=== PATIENT | female | born 1980 | race Caucasian/White ===

== ENCOUNTER 2016-12-31 11:34 | Emergency (ER) | payer MEDICAID ==
[2016-12-31 12:15] LABS: Hematocrit 40.2 % (37.0-47.0); Hemoglobin 13.7 gm/dL (12.5-16.0); Mean Cell Volume 86.1 fl (78-100); Mean Corpuscular Hemoglobin 29.3 pg (27-31); Mean Corpuscular Hgb Conc 34.1 g/dl (32-36); Mean Platelet Volume 8.2 fl (6.0-9.5); Neutrophil # 4.5 K/mm3 (1.3-6.0); Neutrophil % 65.3 % (42-75.0); Platelet Count 266 K/mm3 (150-450); Red Blood Count 4.67 M/mm3 (4.2-5.4); Red Cell Distribution Width 12.4 % (11.5-14.0); White Blood Count 6.9 K/mm3 (4.0-10.5)
--- NOTE | 2016-12-31 12:27 | ERNOTE ---
Medical Problem HPI - Narrative Date of Service: 12/31/16 - General Chief Complaint: General Assessment Time Seen by Provider: 12/31/16 11:58 Source: patient Exam Limitations: no limitations - Immun/Allergies/Home Medications Immunizations: IMMUNIZATION HX Immunizations Up to Date Yes Allergies/Adverse Reactions: Allergies No Known Allergies Allergy (Verified 12/31/16 11:53) Home Medications: HOME MEDICATIONS Prenatabs Rx Tablet 12/31/16 [Last Taken Unknown] - History of Present History Narrative: Pt. comes in with c/o spotting blood on her toilet paper when she wiped once last night and once today. Pt. states that she is with her LMP 11/01/15 and she is 8 wk 5 days by dates. Pt. denies any pain, Dysuria, recent illness, fever, SOB, CP, NVD, alleviating factors, aggravating factors, or prehospital treatment. Review of Systems - Review of Systems Constitutional: Present: no symptoms reported. Absent: recent illness, fever, chills, weakness, fatigue EYE: Present: no symptoms reported ENT: Present: no symptoms reported Respiratory: Present: no symptoms reported. Absent: shortness of breath, cough , wheezing Cardiology: Present: no symptoms reported. Absent: chest pain, palpitations, edema Gastrointestinal/Abdominal: Present: no symptoms reported. Absent: nausea, vomiting, diarrhea, abdominal pain Genitourinary: Present: discharge - blood Musculoskeletal: Present: no symptoms reported. Absent: back pain, joint pain Skin: Present: no symptoms reported. Absent: rash, change in color All Other Systems: All systems neg except as marked - Patient's Past Medical History Patient History - Medical: No pertinent hx Patient History - Cardiac/Respiratory: No pertinent hx Patient History - Cancer: No Hx of Cancer Patient History - Other: None - Social History Living Situations: spouse Abuse History: No History of abuse Psych History: No pertinent hx Smoking Status: Never smoker Alcohol Use: none Drug Use: none - Immunizations Immunizations Up to Date: Yes Physical Exam - Physical Exam General Appearance: Present: wd/wn, alert, no apparent distress Eye Exam: Normal inspection: bilateral, PERRL: bilateral, EOMI: bilateral Ears, Nose, Throat: Present: normal ENT inspection, normal pharynx Neck: Present: normal inspection, nontender. Absent: lymphadenopathy (R), lymphadenopathy (L) Respiratory: Present: no respiratory distress, normal breath sounds, no accessory muscle use, chest nontender, lungs clear Cardiovascular/Chest: Present: regular rate, rhythm, no murmur, normal peripheral pulses Gastrointestinal/Abdominal: Present: normal bowel sounds, nontender, nondistended, soft, no organomegaly Back Exam: Present: normal inspection Extremity Exam: Present: normal inspection Neurological Exam: Present: alert, oriented, normal mood/affect, no motor/ sensory deficits Skin Exam: Present: normal color, warm/dry. Absent: pallor, skin rash Pelvic Exam: Absent: active bleeding ED Progress - Date and Time Seen: Date and Time: 12/31/16 15:00 Discussed the probability of demise with Dr Salinas and she recommends having pt. call first thing in the am and discuss with Dr Hall on her options for her miscarriage. - Results and Orders Patient's Lab Results:: I have reviewed the patient's lab results. - Vital Signs Patient's Vital Signs:: I have reviewed the patient's vital signs. Vital Signs: Vital Signs 12/31/16 11:44 Temperature 37.1 C Pulse Rate 92 Respiratory 16 Rate Blood Pressure 153/91 O2 Sat by Pulse 100 Oximetry - CT/Ultrasound CT/Ultrasound Narrative: US with pole GS sac and yolk sac seen no FHT - Progress/Reassessment Chief Complaint: General Assessment Departure - Departure Clinical Impression: demise Disposition: Home self-care Condition: Good Instructions: Miscarriage, [id number] Additional Instructions: Please call Dr Hall's office tomorrow morning to discuss options.
[2016-12-31 12:49] LABS: Urine Color Yellow
[2016-12-31 12:50] LABS: Urine Appearance Clear; Urine Bacteria None Seen; Urine Bilirubin Negative (NEGATIVE); Urine Blood 25 /ul (NEGATIVE); Urine Ketone Negative (NEGATIVE); Urine Nitrite Negative (NEGATIVE); Urine Protein Negative (NEGATIVE); Urine RBC 0-5 /hpf (0-5); Urine Urobilinogen Normal (NORMAL); Urine WBC None Seen /hpf (0-5); Urine pH 6.5 pH (5.0-7.0)
[2016-12-31 14:20] VITALS: BP 146/86
== END 2016-12-31 15:11 | disposition home or self-care (01) ==
LOC: ER 11:34
DX: O03.4 Incomplete spontaneous abortion without complication (principal)

== ENCOUNTER 2019-01-02 00:09 | Inpatient (IN) ==
[2019-01-02] MEDS ORDERED: MISOPROSTOL 100 MCG TABLET VG PRN (00:13)
[2019-01-02] MEDS ORDERED: OXYTOCIN/DEXTROSE 5%-WATER 30 UNITS/500 ML BAG IV ONE ×2 (00:13→16:57)
[2019-01-02 00:46] LABS: Cocaine Ur Negative (NEGATIVE); Urine Barbiturate Negative (NEGATIVE); Urine Benzodiazepines Negative (NEGATIVE); Urine Opiates Negative (NEGATIVE); Urine PCP Negative (NEGATIVE); Urine THC Negative (NEGATIVE)
[2019-01-02] MEDS: DEXTROSE 5%-LACTATED RINGERS 1,000 ML IV PRN ×3 (00:51→10:20)
[2019-01-02] MEDS: RINGER'S SOLUTION,LACTATED 1,000 ML IV ONE ×2 (06:32→09:20)
--- NOTE | 2019-01-02 07:58 | HP ---
Chief Complaint - Chief Complaint Date of Service: 01/02/19 Time of Service: 07:45 Chief Complaint: medical induction of labor History of Present Illness: 38 yo at 37 weeks presents to L&D for induction of labor for GHTN. This complicated by anemia, AMA, GHTN, morbid obesity, h/o migraines. Rh positive Rubella nonimmune GBS negative Medical History (Updated 12/27/18 @ 09:19 by Theresa Prince MD) BMI 33.0-33.9,adult (Chronic) Advanced maternal age affecting , antepartum (Acute) Advanced maternal age (AMA) in Onset Date: 06/11/18 Anemia Onset Date: 10/22/18 w/. Body piercing Onset Date: Unknown Obesity Onset Date: Unknown Psoriasis of scalp Onset Date: Unknown Tattoos Onset Date: Unknown , spontaneous Onset Date: ~2016 x2 in 2017 HPV (human papilloma virus) infection Onset Date: Unknown Migraine Onset Date: Unknown with aura Surgical History: Surgical History (Updated 11/13/18 @ 16:38 by Ayush Hall DO) [place] teeth extracted Onset Date: ~1997 High school Family History: Family History (Updated 06/11/18 @ 13:43 by Juice Sweet RN) Mother Alive and well Father Medical history unknown Grandfather CVA (cerebral vascular accident) Grandmother CVA (cerebral vascular accident) Grandmother Lung cancer Social History: Preferred Language Montenegrin Smoking Status Never smoker Abuse History No History of abuse Psych History No pertinent hx (Last Updated 12/30/18 @ 10:19 by Ayush Hall DO) No Social History Section defined Review Of Systems (GEN) - Review of Systems Generalized/Overall Review: Present: No Symptoms Reported EENTM: Present: No Symptoms Reported Respiratory: Present: No Symptoms Reported Cardiac: Present: No Symptoms Reported Abdominal: Present: No Symptoms Reported Genitourinary: Present: No Symptoms Reported Musculoskeletal: Present: No Symptoms Reported Neurological: Present: No Symptoms Reported Skin: Present: No Symptoms Reported Endocrine: Present: No Symptoms Reported Immunizations: IMMUNIZATION HX Immunizations Up to Date Yes History of Influenza Vaccine No Hx Pneumococcal Vaccination No Allergies/Adverse Reactions: Allergies Allergy/AdvReac Type Severity Reaction Status Date / Time No Known Allergies Allergy Verified 01/02/19 00:17 Home Medications: HOME MEDICATIONS [id number]/Iron Fumarate/FA/Dss [ 19 Tablet] 1 ea PO DAILY 06/18/17 [Last Taken 01/01/19 09:00] ferrous sulfate 325 mg (65 mg iron) tablet 325 mg PO DAILY #30 tab 10/22/18 [Last Taken 01/01/19 09:00] ascorbic acid (vitamin C) 500 mg tablet 500 mg PO DAILY 11/19/18 [Last Taken 01/01/19 09:00] Exam - Exam Vital Signs: Vital Signs - Last Taken Temp 36.4 C 01/02/19 01:16 Pulse 82 01/02/19 01:16 Resp 16 01/02/19 01:16 BP 128/63 01/02/19 01:16 Pulse Ox 97 01/02/19 01:16 Constitutional: Present: Alert, Oriented x3, Cooperative ENT Exam: Present: hearing grossly normal Breasts: Present: Exam deferred Respiratory: Present: lungs clear, no respiratory distress Cardiovascular/Chest: Present: normal peripheral pulses, regular rate, rhythm Abdomen: Present: soft, nontender, no rebound tenderness, other - Gravid /Rectal: Present: Other - cervix - 1-2/th/-3 Extremity: Present: non-tender, no pedal edema, no calf tenderness Skin Exam: Present: normal color, warm/dry, no cyanosis Neurologic: Present: alert, normal mood/affect, oriented x 3 Appearance: Present: appropriate appearance, appropriate insight Eye contact: Present: cooperative, good eye contact Thoughts: Present: normal thought pattern Diagnostic Studies: Laboratory Results Negative (NEGATIVE) 01/02/19 00:19 Negative (NEGATIVE) 01/02/19 00:19 Ur Phencyclidine Scrn Negative (NEGATIVE) 01/02/19 00:19 Urine Amphetamine Negative (NEGATIVE) 01/02/19 00:19 U Benzodiazepines Scrn Negative (NEGATIVE) 01/02/19 00:19 Negative (NEGATIVE) 01/02/19 00:19 Negative (NEGATIVE) 01/02/19 00:19 Assessment/Plan - Assessment/Plan (1) Gestational hypertension Assessment: Admit for Cytotec induction of labor. Epidural PRN. Problem: Acute Qualifiers: Trimester: third trimester (2) BMI 33.0-33.9,adult Problem: Chronic (3) Advanced maternal age affecting , antepartum Problem: Chronic
--- NOTE | 2019-01-02 08:05 | PN ---
Progess Note - Interim Date: 01/02/19 Time: 07:58 Narrative: 01/02/19 07:58 Patient rating contractions as mild Vital signs stable. Status post one dose of Cytotec at 0205 FHT:150 baseline, minimal variability with occasional mild variable deceleration. Minimum variability has been present since admission with occasional 10 x10 accelerations. Good accelerations for about 30 min around 0430. Contractions q 2-3 min Cervix: 2/25/-2, AROM at 0659 clear. IUPC and FSE placed. Impression: Intrauterine at 37 weeks induction of labor for gestational hypertension. Category 2 tracing. Plan: Continue with position changes and fluid hydration. Patient and family have been counseled on high risk for needing section. Risks, benefits, and alternatives discussed with patient and family. OR crew aware and on standby if needed.
--- NOTE | 2019-01-02 09:17 | ANES ---
Anesthesia Pre Procedure Eval Vitals/Labs: Last Vital Signs Temp 36.4 C 01/02/19 01:16 Pulse 82 01/02/19 01:16 Resp 16 01/02/19 01:16 BP 128/63 01/02/19 01:16 Pulse Ox 97 01/02/19 01:16 HOME MEDICATIONS [id number]/Iron Fumarate/FA/Dss [ 19 Tablet] 1 ea PO DAILY 06/18/17 [Last Taken 01/01/19 09:00] ferrous sulfate 325 mg (65 mg iron) tablet 325 mg PO DAILY #30 tab 10/22/18 [Last Taken 01/01/19 09:00] ascorbic acid (vitamin C) 500 mg tablet 500 mg PO DAILY 11/19/18 [Last Taken 01/01/19 09:00] Allergies/Adverse Reactions: Allergies Allergy/AdvReac Type Severity Reaction Status Date / Time No Known Allergies Allergy Verified 01/02/19 00:17 - Planned Procedure Planned Procedure: INDUCTION FOR GESTATIONAL DIABETES Medication List Reviewed:: Yes Allergies Verified: Yes Medical History (Updated 01/02/19 @ 07:58 by Ayush Hall DO) BMI 33.0-33.9,adult (Chronic) Advanced maternal age affecting , antepartum (Chronic) Advanced maternal age (AMA) in Onset Date: 06/11/18 Anemia Onset Date: 10/22/18 w/. Body piercing Onset Date: Unknown Obesity Onset Date: Unknown Psoriasis of scalp Onset Date: Unknown Tattoos Onset Date: Unknown , spontaneous Onset Date: ~2016 x2 in 2017 HPV (human papilloma virus) infection Onset Date: Unknown Migraine Onset Date: Unknown with aura Surgical History (Updated 11/13/18 @ 16:38 by Ayush Hall DO) [place] teeth extracted Onset Date: ~1997 High school Family History (Updated 06/11/18 @ 13:43 by Juice Sweet RN) Mother Alive and well Father Medical history unknown Grandfather CVA (cerebral vascular accident) Grandmother CVA (cerebral vascular accident) Grandmother Lung cancer - Family Anesthesia History Family History:: no untoward family reactions to anesthesia - Airway/Neck/Teeth Within Normal Limits:: Yes Teeth Condition: intact Neck Exam: full range of motion Mallampatti Score: 2 Thyromental (T-M) distance: > 6 cm Mandibulo Hyoid distance: > 3 cm - Respiratory Smoking Status: Never smoker Sleep Apnea currently treated: No Sleep Apnea by current assessment: No - Cardiovascular Tolerate Activity: Good Heart Sounds: S1 & S2, Regular - Anesthesia Assessment and Plan ASA Class: PS, II, E Anesthesia Type Plan: Spinal - TAP block for postop analgesia
[2019-01-02] MEDS ORDERED: BUPIVACAINE HCL/0.9 % NACL/PF 250 ML EP PRN (10:12)
[2019-01-02] MEDS ORDERED: NALOXONE HCL 1 MG/1 ML SYRG IV PRN (10:12)
[2019-01-02] MEDS ORDERED: ONDANSETRON HCL/PF 2 MG/ML VIAL IV PRN (10:12)
--- NOTE | 2019-01-02 10:14 | ANES ---
Anesthesia Pre Procedure Eval Vitals/Labs: Last Vital Signs Temp 36.4 C 01/02/19 01:16 Pulse 82 01/02/19 01:16 Resp 16 01/02/19 01:16 BP 128/63 01/02/19 01:16 Pulse Ox 97 01/02/19 01:16 HOME MEDICATIONS [id number]/Iron Fumarate/FA/Dss [ 19 Tablet] 1 ea PO DAILY 06/18/17 [Last Taken 01/01/19 09:00] ferrous sulfate 325 mg (65 mg iron) tablet 325 mg PO DAILY #30 tab 10/22/18 [Last Taken 01/01/19 09:00] ascorbic acid (vitamin C) 500 mg tablet 500 mg PO DAILY 11/19/18 [Last Taken 01/01/19 09:00] Allergies/Adverse Reactions: Allergies Allergy/AdvReac Type Severity Reaction Status Date / Time No Known Allergies Allergy Verified 01/02/19 00:17 - Planned Procedure Planned Procedure: INDUCTION FOR GESTATIONAL DIABETES Medication List Reviewed:: Yes Allergies Verified: Yes Medical History (Updated 01/02/19 @ 07:58 by Ayush Hall DO) BMI 33.0-33.9,adult (Chronic) Advanced maternal age affecting , antepartum (Chronic) Advanced maternal age (AMA) in Onset Date: 06/11/18 Anemia Onset Date: 10/22/18 w/. Body piercing Onset Date: Unknown Obesity Onset Date: Unknown Psoriasis of scalp Onset Date: Unknown Tattoos Onset Date: Unknown , spontaneous Onset Date: ~2016 x2 in 2017 HPV (human papilloma virus) infection Onset Date: Unknown Migraine Onset Date: Unknown with aura Surgical History (Updated 11/13/18 @ 16:38 by Ayush Hall DO) [place] teeth extracted Onset Date: ~1997 High school Family History (Updated 06/11/18 @ 13:43 by Juice Sweet RN) Mother Alive and well Father Medical history unknown Grandfather CVA (cerebral vascular accident) Grandmother CVA (cerebral vascular accident) Grandmother Lung cancer - Family Anesthesia History Family History:: no untoward family reactions to anesthesia, no familial bleeding tendencies, no family history of clotting disorders, no family history of premature - Airway/Neck/Teeth Within Normal Limits:: Yes Teeth Condition: intact Neck Exam: full range of motion Mallampatti Score: 2 Thyromental (T-M) distance: > 6 cm Mandibulo Hyoid distance: > 3 cm - Respiratory Sleep Apnea currently treated: No Sleep Apnea by current assessment: No - Cardiovascular Tolerate Activity: Fair Heart Sounds: S1 & S2, Regular - Anesthesia Assessment and Plan ASA Class: PS, II, E Anesthesia Type Plan: Epidural - CSE for labor analgesia
[2019-01-02] MEDS ORDERED: fentaNYL CITRATE/PF 50 MCG/ML AMPUL IT SCH (10:15)
--- NOTE | 2019-01-02 10:42 | ANES ---
Post Anesthesia Discharge - Transfer of Care Transfer of Care handoff given to nurse: Yes - Discharge from PACU Discharge from PACU when meets criteria: Yes - Comfortable post CSE.
--- NOTE | 2019-01-02 10:44 | ANES ---
Anesthesia Procedure Note Procedure Note: ANESTHESIA PROCEDURE NOTE Date of Procedure: 01/02/2019 Time of procedure: 10:15. Performed by: Kaden Marvin CRNA, MSN Electron Beam Machine Welder Setter: Yue Karimi RN. Preprocedure diagnosis: Active labor, labor pain. Post procedure diagnosis: Same. Procedure:Epidural for labor analgesia L3 4. Indications: Labor pain. Findings: See below. Details of the procedure: The patient was placed on the side of the bed in sitting positionand prepped with DuraPrep then draped in a sterile fashion. Lidocaine 1% was infiltrated to the skin and subcutaneous tissues at the level of the L3 4 interspace. An 18-gauge Touhy needle was used to approach the epidural space with loss of resistance technique, 2 attempts at this level required. Once loss of resistance was achieved a 27-gauge spinal needle was passed through the epidural needle and CSF was contacted. After CSF returned, 20 mcg of fentanyl was injected in the spinal needle was removed the epidural catheter was then threaded approximately 4 cm in the epidural needle was removed. The catheter was taped in place and after careful aspiration 3 mL of 1.5% lidocaine with 1-200,000 epinephrine was injected without change in maternal heart rate or sensorium. . EBL: Minimal. Fluids: N/A. Specimen: N/A. Post procedure condition: The patient tolerated the procedure well with good relief. No complications were noted. Thank you for this consultation. Kaden Marvin CRNA, MSN
--- NOTE | 2019-01-02 10:52 | PN ---
Progess Note - Interim Date: 01/02/19 Time: 10:49 Narrative: 01/02/19 10:49 Patient getting epidural for increased pain of contractions Vitals stable FHT 150, minimal variability, run of late decels around 0900 which resolved with fluid bolus and position changes, accelerations with contractions at present. Ctxs q 2-3 min Cvx was 3-4/40/-3 at 1000 Imp/plan: 37 wk with GHTN, category II tracing, progressing on own. Epidural. Continue to watch closely and proceed with vaginal delivery.
--- NOTE | 2019-01-02 11:21 | ANES ---
Post Anesthesia Assessment - Vital Signs Vitals: Last Vital Signs Temp 36.4 C 01/02/19 01:16 Pulse 82 01/02/19 01:16 Resp 16 01/02/19 01:16 BP 128/63 01/02/19 01:16 Pulse Ox 97 01/02/19 01:16 Airway Patency: Normal - Mental Status Level Of Consciousness: Awake, Alert, Appropriate - Pain Level Pain Score: 0 - N/V Assessment Nausea/Vomiting Presence: None Dehydration:: No
--- NOTE | 2019-01-02 12:13 | PN ---
Progess Note - Interim Date: 01/02/19 Time: 12:11 Narrative: 01/02/19 12:11 Patient comfortable with epidural Vital signs stable. Pitocin at 2 mu/min. FHT: 145 baseline, minimum variability with good accelerations to 10 beats above baseline occasional variable deceleration and occasional late deceleration Contractions q 2-3 min Cervix: 4-5/40/-2 Impression: Intrauterine at 37 weeks induction of labor for gestational hypertension Plan: Continue present plan
--- NOTE | 2019-01-02 13:01 | PN ---
Progess Note - Interim Date: 01/02/19 Time: 12:59 Narrative: 01/02/19 12:59 Pt had four subtle late decels in a row that resolved with position change. FHT 150 good acceleration with cervical exam. No lates with past 5 contractions. Cervix now 6/80/-2. Will continue with attempt at vaginal delivery for now.
[2019-01-02] MEDS ORDERED: SENNOSIDES 8.6 MG TABLET PO PRN (16:57)
[2019-01-02] MEDS ORDERED: IBUPROFEN 800 MG TABLET PO PRN (16:57)
[2019-01-02] MEDS ORDERED: BENZOCAINE/MENTHOL 81 SPRAY CAN TP PRN (16:57)
[2019-01-02] MEDS ORDERED: HYDROCORTISONE 30 APPL TUBE TP PRN (16:57)
[2019-01-02] MEDS ORDERED: BISACODYL 10 MG SUPP.RECT RC PRN (16:57)
[2019-01-02] MEDS ORDERED: GLYCERIN/WITCH HAZEL LEAF 40 APPL BOX TP PRN (16:57)
[2019-01-02] MEDS ORDERED: oxyCODONE HCL/ACETAMINOPHEN 1 TAB TABLET PO PRN (16:57)
--- NOTE | 2019-01-02 17:00 | OR ---
Operative Report - Dictated Report Narrative: Spontaneous vaginal delivery of a vigorously crying viable female at 1622 on 01/02/2019 with Apgars 9 and 9, weighing 2780 g in LEXUS position with foot/leg cord 1. Cord clamping delayed approximately 1 minute Placenta delivered complete, intact, with three vessel cord Estimated blood loss: less than 50 ml Anesthesia: epidural Lacerations: None History for MU History for Definition: * The number of deliveries resulting in a live the patient experienced prior to current hospitalization * The previous delivery of live twins or any live multiple gestation is considered one live event. *If primagravida or nulliparous is documented select zero for the number of previous live births. Live Events: Live Events: 2
[2019-01-02] MEDS: IBUPROFEN 800 MG TABLET PO PRN (18:51)
[2019-01-02] MEDS: DOCUSATE SODIUM 100 MG CAPSULE PO SCH (21:18)
[2019-01-03] MEDS: IBUPROFEN 800 MG TABLET PO PRN ×4 (01:02→20:06)
[2019-01-03] MEDS: DOCUSATE SODIUM 100 MG CAPSULE PO SCH ×2 (10:12→20:07)
[2019-01-03] MEDS: FERROUS SULFATE 325 MG TABLET PO SCH (10:12)
[2019-01-03] MEDS: PRENATAL VITS96/IRON FUM/FOLIC 1 TAB TABLET PO SCH (10:12)
[2019-01-03] MEDS: ASCORBIC ACID 500 MG TABLET PO SCH (10:46)
--- NOTE | 2019-01-03 11:32 | PN ---
Subjective - Date and Time Seen Date: 01/03/19 Time: 11:29 Subjective Narrative: Denies complaints. Bottlefeeding. Objective - Vitals Vitals: Last Vital Signs Temp 36.5 C 01/03/19 08:00 Pulse 114 H 01/03/19 08:00 Resp 20 01/03/19 08:00 BP 137/75 01/03/19 08:00 Pulse Ox 97 01/03/19 08:00 - Exam Constitutional: Present: Alert, Oriented x3, Cooperative, No distress ENT Exam: Present: hearing grossly normal Breasts: Present: Exam deferred Respiratory: Present: no respiratory distress Cardiovascular/Chest: Present: tachycardia Abdomen: Present: soft, nontender, no rebound tenderness, other - uterus at U-1 /Rectal: Present: Exam deferred Extremity: Present: no pedal edema, no calf tenderness Skin Exam: Present: normal color, warm/dry, no cyanosis Neurologic: Present: alert, normal mood/affect, oriented x 3 Appearance: Present: appropriate appearance, appropriate insight Eye contact: Present: cooperative, good eye contact, normal speech Thoughts: Present: normal thought pattern Assessment/Plan Plan Narrative: Routine care. - Problems/Diagnosis (1) Gestational hypertension Problem: Resolved Qualifiers: Trimester: third trimester (2) BMI 33.0-33.9,adult Problem: Chronic (3) Advanced maternal age affecting , antepartum Problem: Chronic
--- NOTE | 2019-01-04 07:19 | PN ---
Subjective - Date and Time Seen Date: 01/04/19 Time: :18 Objective - Vitals Vitals: Last Vital Signs Temp 36.8 C 01/04/19 00:46 Pulse 84 01/04/19 00:46 Resp 18 01/04/19 00:46 BP 138/88 01/04/19 00:46 Pulse Ox 98 01/04/19 00:46 Patient denies complaints. Bottle feeding. Lochia wnl Abdomen - soft, nontender Uterus - firm, at umbilicus - 2 No calf tenderness Impression: day #2 - s/p spontaneous vaginal delivery. Plan: Routine discharge instructions Assessment/Plan - Problems/Diagnosis (1) Gestational hypertension Problem: Resolved Qualifiers: Trimester: third trimester (2) BMI 33.0-33.9,adult Problem: Chronic (3) Advanced maternal age affecting , antepartum Problem: Chronic
[2019-01-04] MEDS: PRENATAL VITS96/IRON FUM/FOLIC 1 TAB TABLET PO SCH (07:55)
[2019-01-04] MEDS: IBUPROFEN 800 MG TABLET PO PRN (07:56)
[2019-01-04] MEDS: FERROUS SULFATE 325 MG TABLET PO SCH (07:56)
[2019-01-04] MEDS: DOCUSATE SODIUM 100 MG CAPSULE PO SCH (07:56)
[2019-01-04] MEDS: ASCORBIC ACID 500 MG TABLET PO SCH (07:56)
[2019-01-04 13:01] VITALS: BP 139/97
== END 2019-01-04 14:30 | disposition home or self-care (01) | DRG 807 ==
LOC: OB 00:09 → MS 01-03 22:06
PROVIDERS: ADMIT Obstetrics & Gynecology; ATTEND Obstetrics & Gynecology
CPT/HCPCS: 59025; 80307; 88307